=== PATIENT | female | born 2000 | race Two or more races ===

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

== ENCOUNTER → 2024-02-28 | Emergency (ER) | payer MEDICAID ==
[~2024-02-28] VITALS: Ht 162.6 cm; Wt 56.7 kg
[~2024-02-28] MED LIST changes: +ACETAMINOPHEN ES 500 MG TABLET ONE; +METOCLOPRAMIDE HCL 10 MG/2 ML VIAL ONE; +diphenhydrAMINE HCL 50 MG/ML VIAL ONE
[2024-02-28] MEDS: IV NS 0.9% 1,000 ML BAG IV ONE (18:52)
[2024-02-28] MEDS: diphenhydrAMINE HCL 50 MG/ML VIAL IV ONE (18:52)
[2024-02-28] MEDS: ACETAMINOPHEN ES 500 MG TABLET PO ONE (18:52)
[2024-02-28] MEDS: METOCLOPRAMIDE HCL 10 MG/2 ML VIAL IV ONE (18:53)
[2024-02-28 19:00] LABS: BASOPHILS % (AUTO) 0.3 % (0.0-2.0); EOSINOPHILS # (AUTO) 0.1 K/uL (0.0-0.7); EOSINOPHILS % (AUTO) 0.5 % (0.0-6.0); HEMATOCRIT 37 % (33-45); HEMOGLOBIN 12.4 g/dL (11.5-14.8); LYMPHOCYTES # (AUTO) 6.8 K/uL (0.8-4.8); LYMPHOCYTES % (AUTO) 71.7 % (20.0-44.0); MEAN CORPUSCULAR HEMOGLOBIN 30 PG (26.0-33.0); MEAN CORPUSCULAR HGB CONC 34 g/dl (31.0-36.0); MEAN CORPUSCULAR VOLUME 89 fL (82-100); MONOCYTES # (AUTO) 1.2 K/uL (0.1-1.30); MONOCYTES % (AUTO) 13.1 % (2.0-12.0); NEUTROPHILS # (AUTO) 1.4 K/uL (1.8-8.9); NEUTROPHILS % (AUTO) 14.4 % (43.0-81.0); PLATELET COUNT (AUTO) 149 K/uL (150-450); RED BLOOD CELL COUNT(AUTO) 4.12 MIL/uL (4.0-5.2); RED CELL DISTRIBUTION WIDTH 13.7 % (11.5-15.0); WHITE BLOOD COUNT (AUTO) 9.5 K/uL (4.3-11.0)
[2024-02-28 19:26] LABS: CALCIUM, SERUM 8.8 mg/dL (8.5-10.1); CREATININE 0.6 mg/dL (0.6-1.3); POTASSIUM 3.9 mmol/L (3.5-5.1)
[2024-02-28 19:40] LABS: MONOTEST POSITIVE (NEGATIVE)
[2024-02-28 20:13] LABS: BASOPHILS % (MANUAL) 0 % (0.0-2.0); PLATELET ESTIMATE DECREASED
[2024-02-28 20:45] VITALS: BP 100/75; TEMP 98.4; O2SAT 99
[2024-02-28 20:51] LABS: EOSINOPHILS % (MANUAL) 1 % (0-4); MONOCYTES % (MANUAL) 2 % (0-11.0); NEUTROPHILS % (MANUAL) 21 (42-76); REACTIVE LYMPHOCYTES 18 % (0-0)
[2024-02-28 20:52] LABS: LYMPHOCYTES % (MANUAL) 32 % (16-48)
== END ==
LOC: ER 18:25
DX: R51.9 Headache, unspecified (principal); R11.10 Vomiting, unspecified; R50.9 Fever, unspecified; B27.90 Infectious mononucleosis, unspecified without complication; J45.909 Unspecified asthma, uncomplicated
CPT/HCPCS: 99284; 96374; 96361; 96375; 85025; 80048; 86308; 36415; 85007; J1200; J2765; J7030